=== PATIENT | female | born 2005 | race Hispanic/Latino ===

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

== ENCOUNTER 2023-10-18 02:09 | Inpatient (IN) | payer MEDICAID, OTHER ==
[~2023-10-18] VITALS: Ht 154.9 cm; Wt 73.5 kg
[~2023-10-18 02:09] MED LIST: DOCU-116 PO; IBUP-2077 PO; PNV1TABL17 PO
[2023-10-18 02:56] LABS: APPEARANCE,URINE CLEAR (CLEAR); BILIRUBIN,URINE NEGATIVE (NEGATIVE); COLOR,URINE COLORLESS (YELLOW); GLUCOSE, URINE (UA) NEGATIVE (NEGATIVE); KETONES,URINE NEGATIVE (NEGATIVE); LEUKOCYTE ESTERASE ,URINE NEGATIVE Leu/uL (NEGATIVE); NITRATE,URINE NEGATIVE (NEGATIVE); PH,URINE 6.5 (5.0-8.0); PROTEIN,URINE NEGATIVE (NEGATIVE); UROBILINOGEN,URINE 0.2 mg/dL (0.2-1.0)
[2023-10-18 03:02] LABS: AMPHET/METH SCREEN,URINE NEGATIVE (NEGATIVE); BARBITURATE SCREEN, URINE NEGATIVE (NEGATIVE); BENZODIAZEPINES SCREEN,URINE NEGATIVE (NEGATIVE); CANNABINOID SCREEN,URINE NEGATIVE (NEGATIVE); COCAINE SCREEN,URINE NEGATIVE (NEGATIVE); OPIATE SCREEN,URINE NEGATIVE (NEGATIVE); PHENCYCLIDINE SCREEN,URINE NEGATIVE (NEGATIVE)
[2023-10-18 03:03] LABS: ADD UA MICROSCOPIC YES
[2023-10-18 03:23] LABS: RBC,URINE 0-1 /HPF (0-1); SQUAMOUS EPITHELIAL CELL,UR FEW /HPF (0-2)
[2023-10-18] MEDS ORDERED: OXYTOCIN-LR 30 UNITS/500ML 500 ML IV SCH ×2 (03:30→04:00)
[2023-10-18] MEDS ORDERED: LACTATED RINGERS 1000ML 1,000 ML IV PRN (03:30)
[2023-10-18] MEDS ORDERED: AMPICILLIN 2GM+NS 100ML 100 ML IV SCH (03:30)
[2023-10-18 04:50] LABS: HEMATOCRIT 30.6 % (36-48); MEAN CORPUSCULAR HEMOGLOBIN 25.9 pg (27.0-33.0); MEAN CORPUSCULAR HGB CONC 31.7 g/dL (32.0-36.0); MEAN CORPUSCULAR VOLUME 81.8 fL (80-100); RED BLOOD CELL COUNT(AUTO) 3.74 MIL/uL (4.00-5.50); RED CELL DISTRIBUTION WIDTH 16.9 % (11.0-15.5); WHITE BLOOD COUNT (AUTO) 8.7 K/uL (4.8-10.8)
[2023-10-18 05:01] LABS: HIV 1&2 ANTIBODY Non-Reactive (Negative)
[2023-10-18 05:02] LABS: HIV-1 p24 Antigen Non-Reactive (Negative)
[2023-10-18] MEDS ORDERED: NALOXONE HCL 0.4 MG/1 ML ML IV PRN (10:30)
[2023-10-18] MEDS ORDERED: LACTATED RINGERS 500 ML 500 ML IV PRN (10:30)
[2023-10-18] MEDS ORDERED: EPHEDRINE SULFATE 50 MG/ML AMPULE IVP PRN (10:30)
[2023-10-18] MEDS ORDERED: ROPIVACAINE 0.2% 100ML VIAL 100 ML EP SCH (10:30)
[2023-10-18] MEDS ORDERED: AMPICILLIN 1GM+NS 50ML 50 ML IV ONE (12:09)
[2023-10-18] MEDS ORDERED: AMPICILLIN 1GM+NS 50ML 50 ML IV SCH (12:30)
[2023-10-18] MEDS ORDERED: BENZOCAINE/LANOLIN/ALOE VERA 60 ML AEROSOL TP PRN (14:30)
[2023-10-18] MEDS ORDERED: ACETAMINOPHEN WITH CODEINE 1 TAB TAB PO PRN (14:30)
[2023-10-18] MEDS ORDERED: WITCH HAZEL 1 PAD TP PRN (14:30)
[2023-10-18] MEDS ORDERED: LANOLIN 30GM OINTMENT TP PRN (14:30)
[2023-10-18] MEDS ORDERED: ACETAMINOPHEN 325 MG TAB PO PRN (14:30)
[2023-10-18] MEDS: IBUPROFEN 600 MG TABLET PO PRN ×2 (15:06→20:39)
[2023-10-18 15:45] VITALS: BP 121/71; PULSE 81; RESP 18
[2023-10-18] MEDS ORDERED: DIPH,PERTUSS(ACELL),TET VAC/PF 0.5 ML VIAL IM ONE (16:30)
[2023-10-18] MEDS ORDERED: FLU VACC QS2022-23(6MOS UP)/PF 60 MCG/0.5 ML ML IM ONE (18:00)
[2023-10-18 19:27] VITALS: BP 115/63; PULSE 86; RESP 18
[2023-10-18] MEDS: DOCUSATE SODIUM 100 MG CAP PO SCH (20:39)
[2023-10-19] VITALS (7 sets, daily range): BP systolic 93–117; BP diastolic 51–72; PULSE 72–98; RESP 18–24
[2023-10-19] MEDS: IBUPROFEN 600 MG TABLET PO PRN ×2 (05:01→18:33)
[2023-10-19 06:51] LABS: HEMATOCRIT 28.6 % (36-48); MEAN CORPUSCULAR HEMOGLOBIN 25.9 pg (27.0-33.0); MEAN CORPUSCULAR HGB CONC 31.8 g/dL (32.0-36.0); MEAN CORPUSCULAR VOLUME 81.3 fL (80-100); RED BLOOD CELL COUNT(AUTO) 3.52 MIL/uL (4.00-5.50); WHITE BLOOD COUNT (AUTO) 8.8 K/uL (4.8-10.8)
[2023-10-19] MEDS ORDERED: FLU VACC QS2023-24(6MOS UP)/PF 60 MCG/0.5 ML IM ONE (09:00)
[2023-10-19] MEDS: DOCUSATE SODIUM 100 MG CAP PO SCH ×2 (10:04→21:23)
[2023-10-19 16:08] LABS: RAPID PLASMA REAGIN NONREACTIVE (NONREACTIVE)
[2023-10-20 04:19] VITALS: BP 94/48; PULSE 71; RESP 17
[2023-10-20 07:20] VITALS: BP 109/67; PULSE 75; RESP 18
[2023-10-20] MEDS: DOCUSATE SODIUM 100 MG CAP PO SCH (08:21)
[2023-10-20] MEDS: IBUPROFEN 600 MG TABLET PO PRN (08:23)
[2023-10-20 12:07] VITALS: BP 110/68; PULSE 92; RESP 18
[2023-10-28] MEDS ORDERED: AMPICILLIN 1GM+NS 50ML 50 ML IV SCH (07:30)
== END 2023-10-20 13:30 | disposition home or self-care (01) | DRG 807 ==
LOC: EDH 02:09 → OBSVTOIN 02:26 → LDH 02:26 → WSH 15:45
PROVIDERS: ADMIT Obstetrics & Gynecology; ATTEND Obstetrics & Gynecology
PROC: 10E0XZZ Delivery of Products of Conception, External Approach (ICD-10-PCS; principal; 2023-10-18)
PROC: 0UQMXZZ Repair Vulva, External Approach (ICD-10-PCS; 2023-10-18)
PROC: 3E0R3BZ Introduction of Anesthetic Agent into Spinal Canal, Percutaneous Approach (ICD-10-PCS; 2023-10-18)
PROC: 00HU33Z Insertion of Infusion Device into Spinal Canal, Percutaneous Approach (ICD-10-PCS; 2023-10-18)
DX: O42.913 Preterm premature rupture of membranes, unspecified as to length of time between rupture and onset of labor, third trimester (principal); Z37.0 Single live birth; O99.02 Anemia complicating childbirth; D64.89 Other specified anemias; O71.82 Other specified trauma to perineum and vulva; O69.1XX0 Labor and delivery complicated by cord around neck, with compression, not applicable or unspecified; Z3A.36 36 weeks gestation of pregnancy
CPT/HCPCS: 36415; 76805; 80305; 81001; 85027; 86592; 86701; 86850; 86900; 86901; 87340; 87390; 90715; A4314; G0378; J0290; J2795; Q2035; Q2038